=== PATIENT | female | born 1995 | race Caucasian/White ===

== ENCOUNTER 2018-02-26 15:52 | Emergency (ER) | payer BC, SELFPAY ==
[2018-02-26 15:54] VITALS: BP 143/90; PULSE 112; RESP 17; TEMP 37; O2SAT 99; BMI 24.9
--- NOTE | 2018-02-26 16:27 | EKG12_ITS ---
Test Reason : BACK PAIN Blood Pressure : / mmHG Vent. Rate : 107 BPM Atrial Rate : 107 BPM P-R Int : 140 ms QRS Dur : 076 ms QT Int : 322 ms P-R-T Axes : 078 066 028 degrees QTc Int : 429 ms Sinus tachycardia Otherwise normal ECG Confirmed by ANUEL DELGADO MD ([id number]), news videotape editor ZECHARIAH CURRY ([id number] on 03/02/2018 1:02:11 PM Referred By: VASHTI Confirmed By:ANUEL DELGADO MD
--- NOTE | 2018-02-26 16:31 | ED.VISSUMM ---
- ER Visit Summary Date of Service: 02/26/18 Chief Complaint: Back pain History of Present Illness: The patient is a 23 F presenting with back pain ?3 weeks. Patient states that she felt that she pulled a muscle and has pain in her left mid back. She states she lifts weights only a couple times a week. She states she does not overdo it. Denies any other injuries. She states today she began having worsening pain in her left mid back. She has no rash. No fever. She states she has had mild rhinorrhea and sore throat. Physical Examination: Vitals are stable. Patient is afebrile. Alert no acute distress. HEENT exam is unremarkable. Neck is supple. Lungs are clear and equal bilaterally. Left mid posterior chest wall tenderness with no crepitus Heart is regular rate and rhythm. Abdomen is soft nontender nondistended. No guarding or rebound Back: Left paraspinal thoracic muscle tenderness with no midline tenderness, no CVA tenderness Extremities are unremarkable. Skin is warm and dry. No rash No focal neurologic deficit. Normal strength and sensation Remainder of exam is unremarkable. Emergency Department Course and Treatment: X-ray of the left ribs shows no acute process. EKG is sinus rate of 107. D-dimer is normal. HCG negative. She is given Toradol and Norflex IM. She is advised to follow-up with Dr. Mejia latex fashions designer for no doc. Advised return to ED if worsening complaints. Disposition: Discharge home Impression: Left sided back pain This note was generated with [employer] dictation software. It may contain incorrect words, spelling, and punctuation that were not noted in review of the chart prior to signing ED Disposition - Plan for ED Patient: Chief Complaint: Back Referrals: Cassy Mclain MD [Primary Care Provider] -
--- NOTE | 2018-02-26 16:45 | RAD_ITS ---
STUDY: X-RAY - UNILATERAL RIBS ( LEFT ) WITH CHEST REASON FOR EXAM: Female, 23 years old. Mid back pain, rib pain times several days TECHNIQUE - RIBS: 4 view(s) of the ribs. TECHNIQUE - CHEST: Single PA view of the chest. COMPARISON: Previous chest study of December 28, 2009 FINDINGS - RIBS: Normal visualized ribs without a demonstrated fracture. FINDINGS - CHEST: The lungs are clear and expanded. There is no demonstrated pleural abnormality. Normal size heart. Normal mediastinum and masoud. Normal visualized pulmonary arteries. Normal visualized aortic arch and descending thoracic aorta. Normal visualized thoracic spine. Normal visualized ribs, clavicles, and shoulders. There is no demonstrated abnormality of the visualized soft tissue structures of the upper abdomen. RAD/Ribs Uni Min 3V w/PA Chest IMPRESSION: RIBS: Normal x-ray examination of the ribs. CHEST: Normal x-ray examination of the chest. Electronically Signed: Chad Jarvis MD at 17:10 EDT , Service support ,
[2018-02-26 17:20] LABS: Pregnancy, Serum, hCG Quali. NEGATIVE Negative (0-9 Nonpreg)
[2018-02-26 17:28] LABS: D-Dimer Quantitative (DVT/PE) 0.31 FEU/ug/m (0.27-0.49)
--- NOTE | 2018-02-26 18:10 | ED.DEP ---
ED Disposition - Plan for ED Patient: Chief Complaint: Back Instructions: ED Neck Back Pain General Prescriptions: Naproxen [Naprosyn] 500 mg PO BID PRN #20 tablet Cyclobenzaprine [Flexeril] 10 mg PO TID PRN #20 tablet PRN Reason: Muscle Spasm Referrals: Cassy Mclain MD [Primary Care Provider] - Sam Mejia DO [NON CLINICAL AFFILIATE] -
[2018-02-26] MEDS: Orphenadrine 60 MG/2 ML Ampul IM (18:34)
[2018-02-26] MEDS: Ketorolac 60 MG/2 ML Vial IM (18:34)
== END 2018-02-26 18:37 | disposition home or self-care (01) ==
PROVIDERS: Emergency Provider Emergency Medicine; Family Provider Pediatrics; PCP Pediatrics
DX: M54.9 Dorsalgia, unspecified (principal); J02.9 Acute pharyngitis, unspecified; J34.89 Other specified disorders of nose and nasal sinuses
CPT/HCPCS: 71101; 84703; 85379; 93005; 96372; 99282